=== PATIENT | male | born 1985 | race Caucasian/White ===

== ENCOUNTER → 2019-03-16 | Outpatient (CLI) | payer BC | END | disposition home or self-care (01) | LOC: LABWHC1 10:02 | PROVIDERS: ATTEND Internal Medicine Endocrinology, Diabetes & Metabolism | DX: R53.83 Other fatigue (principal) | CPT/HCPCS: 36415; 82533; 82607; 84146; 84403 ==

== ENCOUNTER → 2019-03-19 | Outpatient (CLI) | payer BC | END | disposition home or self-care (01) | LOC: LABWHC1 15:45 | PROVIDERS: ATTEND Internal Medicine Endocrinology, Diabetes & Metabolism | DX: E03.8 Other specified hypothyroidism (principal); R23.2 Flushing; R53.83 Other fatigue | CPT/HCPCS: 36415; 84403 ==

== ENCOUNTER → 2019-04-29 | Outpatient (CLI) | payer BC | END | disposition home or self-care (01) | LOC: LABWHC1 06:54 | PROVIDERS: ATTEND Internal Medicine Endocrinology, Diabetes & Metabolism | DX: E03.8 Other specified hypothyroidism (principal); R23.2 Flushing; R53.83 Other fatigue | CPT/HCPCS: 36415; 83001; 83002; 84146; 84403 ==

== ENCOUNTER 2020-06-26 22:18 | Emergency (ER) | payer BC ==
[2020-06-26 22:29] VITALS: TEMP 98.2
[2020-06-26] MEDS ORDERED: RX INFO: IV CONTRAST WAS GIVEN 1 EACH MISC MISCELLANE PRN (22:54)
[2020-06-26 23:04] LABS: Basophils # (A) 0.1 k/uL (0-0.2); Basophils % (A) 1 %; Eosinophils # (A) 0.1 k/uL (0-0.7); Eosinophils % (A) 1 %; HCT 48.5 % (39.0-53.0); HGB 16.4 gm/dL (13.0-17.5); Lymphocytes # (A) 1.8 k/uL (1.0-4.8); Lymphocytes % (A) 20 %; MCHC 33.8 g/dL (31.0-37.0); MCV 88.8 fL (80.0-100.0); Mean Platelet Volume 7.8; Monocytes # (A) 0.3 k/uL (0-1.0); Monocytes % (A) 4 %; Neutrophils # (A) 6.6 k/uL (1.3-7.7); Neutrophils % (A) 73 %; Platelet Count 250 k/uL (150-450); RBC 5.46 m/uL (4.30-5.90); RDW 12.6 % (11.5-15.5)
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
[2020-06-26 23:14] LABS: ALT 46 U/L (4-49); AST 34 U/L (17-59); African American GFR (CKD) >90 (>60 ml/min/1.73 sqM); Albumin 4.8 g/dL (3.5-5.0); Alkaline Phosphatase 62 U/L (38-126); Anion Gap 10 mmol/L; Blood Urea Nitrogen 14 mg/dL (9-20); Calcium 9.6 mg/dL (8.4-10.2); Carbon Dioxide 27 mmol/L (22-30); Chloride 99 mmol/L (98-107); Glucose 127 mg/dL (74-99); Non-African American GFR(CKD) >90 (>60 ml/min/1.73 sqM); Potassium 4.2 mmol/L (3.5-5.1); Sodium 136 mmol/L (137-145); Total Bilirubin 0.4 mg/dL (0.2-1.3); Total Protein 7.5 g/dL (6.3-8.2)
--- NOTE | 2020-06-26 23:49 | XR ---
EXAMINATION TYPE: XR knee 4V LT DATE OF EXAM: 06/26/2020 COMPARISON: NONE HISTORY: Fall. Pain. TECHNIQUE: 4 views FINDINGS: I see no fracture nor dislocation. Joint spaces are fairly normal. There are small knee mu nt effusion. IMPRESSION: Small joint effusion. No fracture seen.
--- NOTE | 2020-06-27 00:02 | CT ---
EXAMINATION TYPE: CT angio lower extremity LT DATE OF EXAM: 06/26/2020 COMPARISON: HISTORY: Left Knee injury CT DLP: 2372.50 mGycm Automated exposure control for dose reduction was used. CONTRAST: Performed with IV Contrast, patient injected with 100 mL of Isovue 370. Multiple axial sections were obtained from the top of the iliac crests to the bottom of the left foot without and with IV contrast Isovue 100 mL. There are 3-D post processed images. FINDINGS: There is arterial flow in the internal and external and common iliac artery on the left side. There i s arterial flow in the left femoral artery. There is arterial flow in the profunda femoris artery. Th ere is arterial flow in the popliteal artery and the tibial artery. There is patency of the tibial ar angel trifurcation. There is suboptimal contrast density in the branches of the tibial artery. I see a rterial flow in the dorsalis pedis artery and the posterior tibial artery at the ankle. I see no evid ence of hemodynamic stenosis. There is a mild knee joint effusion. There is no evidence of bony destr uctive process. The acetabulum is intact. Femur and tibia and fibula appear intact. The bones of the foot appear intact. I see no evidence of a soft tissue mass. Knee joint spaces are fairly normal. IMPRESSION: Negative CT angiogram of the left leg. Small knee joint effusion. No fracture seen.
[2020-06-27] MEDS ORDERED: ACET/COD 300 MG/30 MG STARTER PACK 6 TAB BTL PO STA (00:05)
[2020-06-27 00:36] VITALS: BP 135/92; PULSE 106; RESP 19
== END 2020-06-27 00:36 | disposition home or self-care (01) ==
LOC: EC 22:18
DX: S83.92XA Sprain of unspecified site of left knee, initial encounter (principal); I10 Essential (primary) hypertension; E07.9 Disorder of thyroid, unspecified; Z79.890 Hormone replacement therapy; Z79.899 Other long term (current) drug therapy; Z88.0 Allergy status to penicillin; V86.56XA Driver of dirt bike or motor/cross bike injured in nontraffic accident, initial encounter; Y92.410 Unspecified street and highway as the place of occurrence of the external cause
CPT/HCPCS: 36415; 80053; 85025; 73564; 73706; 99284; Q9967

== ENCOUNTER 2022-11-26 10:02 | Emergency (ER) | payer BC, OTHER ==
[2022-11-26] MEDS ORDERED: DIPH,PERTUS(ACELL)TETVAC-LF 0.5 ML VIAL IM ONE (10:15)
[2022-11-26 10:17] VITALS: TEMP 98.5
--- NOTE | 2022-11-26 10:17 | ED ---
General Adult HPI - General Source: patient, RN notes reviewed Mode of arrival: ambulatory Limitations: no limitations <Yakov Mayfield - Last Filed: 11/26/22 10:16> - General Source: patient, RN notes reviewed Mode of arrival: ambulatory Limitations: no limitations <Maryuri Domingo - Last Filed: 11/26/22 12:08> - General Stated complaint: [facility] - drilled through hand Time Seen by Provider: 11/26/22 10:16 - History of Present Illness Initial comments: 37-year-old male presents emergency Department chief complaint of left thumb injury. Patient stated to screw wood together and states that it went into his thumb. He was able to get it out. Patient states his last tetanus was 8 years ago. Patient has no paresthesias. Patient is right-hand dominant. (Yakov Mayfield) Patient is a 37-year-old male presenting to the emergency room as directed by his employer for an injury to his left thumb. He reports that he was utilizing a new pain to coated screw at work and accidentally screwed it into his left thumb. He quickly backed the screw out of his thumb and applied pressure. He reported minimal bleeding from the site. He does complain of some medial aspect numbness at the distal portion of his thumb along with tenderness and mild swelling. Range of motion of the distal interphalangeal joint impaired due to tenderness and swelling. Strength grasp strong. He denies any other complaints or concerns at this time. He does have past medical history significant for hypertension and hypothyroidism. (Maryuri Domingo) - Related Data Home Medications Medication Instructions Recorded Confirmed Levothyroxine Sodium [Synthroid] 75 mcg PO DAILY 06/26/20 06/26/20 Losartan [Cozaar] 50 mg PO HS 06/26/20 06/26/20 Multivit-Min/Folic/Vit K/Lycop 1 tab PO HS 06/26/20 06/26/20 [Men's Multivitamin Tablet] Turmeric/Dana Chew 1 tab PO HS 06/26/20 06/26/20 hydroCHLOROthiazide 12.5 mg PO HS 06/26/20 06/26/20 Allergies Allergy/AdvReac Type Severity Reaction Status Date / Time Penicillins Allergy Anaphylaxis Verified 11/26/22 10:17 Review of Systems ROS Other: All systems not noted in ROS Statement are negative. <Yakov Mayfield - Last Filed: 11/26/22 10:16> ROS Other: All systems not noted in ROS Statement are negative. <Maryuri Domingo - Last Filed: 11/26/22 12:08> ROS Statement: Those systems with pertinent positive or pertinent negative responses have been documented in the HPI. Past Medical History Past Medical History: Hypertension, Thyroid Disorder History of Any Multi-Drug Resistant Organisms: None Reported Past Surgical History: No Surgical Hx Reported Past Psychological History: No Psychological Hx Reported Smoking Status: Never smoker Past Alcohol Use History: Occasional Past Drug Use History: None Reported <EmreYakov solorio Lily - Last Filed: 11/26/22 10:16> Past Medical History: Hypertension, Thyroid Disorder History of Any Multi-Drug Resistant Organisms: None Reported Past Surgical History: No Surgical Hx Reported Past Psychological History: No Psychological Hx Reported Smoking Status: Never smoker Past Alcohol Use History: Occasional <Maryuri Domingo - Last Filed: 11/26/22 12:08> General Exam Limitations: no limitations <Maryuri Domingo - Last Filed: 11/26/22 12:08> - General Exam Comments Initial Comments: GENERAL: No acute distress, well developed, well nourished. HEENT: Normocephalic, atraumatic. Pupils equal, round, reactive to light. Moist mucous membranes. LUNGS: No respiratory distress or use of accessory muscles. HEART: Regular rate.. ABDOMEN: Non-distended. BACK: Normal inspection. EXTREMITIES: Mild tenderness and swelling to distal aspect of left thumb with puncture wound as indicated below. Range of motion to DIP impaired due to swelling and tenderness. NEUROLOGIC: Alert & oriented x 3. CN II-XII grossly intact. PSYCHIATRIC: Normal affect and behavior. DERMATOLOGIC: Puncture wound noted to the dorsal aspect of left thumb well approximated unable to determine depth due to approximation. No drainage or foreign body present. (Maryuri Domingo) Course Vital Signs 11/26/22 10:14 Temperature 98.5 F Pulse Rate 122 H Respiratory 20 Rate Blood Pressure 158/108 O2 Sat by Pulse 99 Oximetry Medical Decision Making <Maryuri Domingo - Last Filed: 11/26/22 12:08> - Medical Decision Making Was pt. sent in by a medical professional or institution? @ -His employer for [employer] evaluation Did you speak to anyone other than the patient for history? @ -No Did you review nursing and triage notes? @ -Yes and agree Were old charts reviewed? @ -No Differential Diagnosis? @ -[chest pain, altered mental status abdominal pain women, abdominal pain men, vaginal bleeding, weakness, fever, dyspnea, syncope, headache, dizziness, GI bleed, back pain, seizure] EKG interpreted by me (3pts min.)? @ -None X-rays interpreted by me (1pt min.)? @ -Left thumb, no foreign body no fracture. CT interpreted by me (1pt min.)? @ -None U/S interpreted by me (1pt. min.)? @ -None What testing was considered but not performed? (CT, X-rays, U/S, labs)? Why? @-None What meds were considered but not given? Why? @ - Analgesics offered and declined Did you discuss the management of the patient with other professionals? @ -No Did you reconcile home meds? @ -None Was smoking cessation discussed for >3mins.? @ -Not applicable Was critical care preformed (if so, how long)? @ -None Were there social determinants of health that impacted care today? How? (Homelessness, low income, unemployed, alcoholism, drug addiction, transportation, low edu. Level, literacy, decrease access to med. care, fci, rehab)? @ -No Was there de-escalation of care discussed even if they declined? (Discuss DNR or withdrawal of care, Hospice)? @ -No What co-morbidities impacted this encounter? (DM, HTN, Smoking, COPD, CAD, Cancer, CVA, Hep., AIDS, mental health diagnosis, sleep apnea, morbid obesity)? @ -None Was patient admitted / discharged? @ -Puncture injury with screwdriver to left finger x-ray obtained. Declines tetanus due to reporting up-to-date within the last 10 years. No indication for further diagnostic imaging or laboratory studies. X-ray with acute osseous pathology. No foreign body. Will discharge home in stable condition. No indication for antibiotic therapy. Advised localized wound care keeping wound clean and dry and monitoring for signs and symptoms of infection. Patient reports that he investigated his tetanus shot further and reports that his tetanus shot expires this year and he would like his tdap Administered, will administer. Undiagnosed new problem with uncertain prognosis? @ -None Drug Therapy requiring intensive monitoring for toxicity (Heparin, Nitro, Insulin, Cardizem)? @ -None Were any procedures done? @ -None Diagnosis/symptom? @ Puncture wound to left thumb without nail damage or fracture Acute, or Chronic, or Acute on Chronic? @ -Acute Uncomplicated (without systemic symptoms) or Complicated (systemic symptoms)? @ -Uncomplicated Side effects of treatment? @ -None Exacerbation, Progression, or Severe Exacerbation] @ -No Poses a threat to life or bodily function? @ -No Case discussed with Dr. Heath. (Maryuri Domingo) Disposition <Yakov Mayfield - Last Filed: 11/26/22 10:16> Is patient prescribed a controlled substance at d/c from ED?: No Time of Disposition: 12:08 <Maryuri Domingo - Last Filed: 11/26/22 12:08> Clinical Impression: Puncture wound of thumb without foreign body without damage to nail Disposition: HOME SELF-CARE Condition: Stable Instructions (If sedation given, give patient instructions): Puncture Wound (DC) Additional Instructions: Please monitor for signs and symptoms of infection and return to the emergency room or contact her primary care provider if they occur. Please keep wound clean and dry. 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 Please return to the Emergency Department if symptoms worsen or any other concerns. Referrals: Wilton Summers MD [Primary Care Provider] - 1-2 days
--- NOTE | 2022-11-26 11:36 | XR ---
EXAMINATION TYPE: XR finger LT DATE OF EXAM: 11/26/2022 11:01 AM INDICATION: Patient age:Male; 37 years old; Reason for study: trauma, screw in thumb. COMPARISON: None TECHNIQUE: Frontal, lateral and oblique views of the left finger were obtained. FINDINGS: Normal alignment of the visualized joints. No acute osseous pathology is identified. No e vidence of soft tissue swelling. No radiopaque foreign body. Osseous nalini near the first digit metac arpal which is well-corticated near the metacarpal phalangeal joint on the lateral aspect. IMPRESSION: 1. No acute osseous pathology. 2. No radiopaque foreign body. 3. Nonspecific osseous nalini near the first digit metacarpal which is well-corticated near the metaca rpal phalangeal joint on the lateral aspect. This could represent sequela of prior screw versus chron ic process. Correlate with pain.
[2022-11-26 12:35] VITALS: BP 152/104; PULSE 99; RESP 18
== END 2022-11-26 12:41 | disposition home or self-care (01) ==
LOC: EC 10:02
DX: S61.032A Puncture wound without foreign body of left thumb without damage to nail, initial encounter (principal); I10 Essential (primary) hypertension; E03.9 Hypothyroidism, unspecified; Z88.0 Allergy status to penicillin; Z79.899 Other long term (current) drug therapy; Z79.890 Hormone replacement therapy; Z23 Encounter for immunization; W27.8XXA Contact with other nonpowered hand tool, initial encounter
CPT/HCPCS: 90471; 90715; 99283